=== PATIENT | female | born 1940 | race Caucasian/White ===

== ENCOUNTER 2016-04-10 08:01 | Day surgery (SDC) | payer OTHER ==
[2016-04-09 14:46] VITALS: BMI 39.2
[2016-04-10] MEDS ORDERED: LIDOCAINE HCL/PF 1% SDV 5ML VIAL ONE (08:50)
[2016-04-10] MEDS ORDERED: PROPOFOL 20 ML ONE ×2 (08:50)
[2016-04-10 10:14] VITALS: TEMP 98.2
[2016-04-10 11:19] VITALS: BP 135/64; PULSE 74
--- NOTE | 2016-04-11 13:19 | PATH ---
Surgical Pathology Report Patient Name: GEO VERDIN [facility]. Rec. #: [id number] /Age/Gender: 1940 (Age: 76) / F Account: [id number] Location: U-ENDOSCOPY Taken: 04/10/2016 Received: 04/10/2016 Reported: 04/11/2016 Physicians: Jere Loya M.D. Specimen(s) Received BX PROXIMAL TRANSVERSE COLON POLYP Clinical History History of colon polyps, adenoma surveillance Colon polyp (proximal transverse colon), melanosis coli, hemorrhoids Final Diagnosis COLON, PROXIMAL TRANSVERSE, POLYP, BIOPSY: FRAGMENTS OF HYPERPLASTIC TYPE POLYP WITH FOCAL ADENOMATOUS CHANGE. Electronically Signed Zachary Brannon M.D. Gross Description Received in formalin, labeled "biopsy proximal transverse colon polyps" are 2 perales, irregular portions of soft tissue averaging 0.4 cm in greatest dimension. The specimens are submitted in toto in one cassette. 04/10/201604/10/2016
== END 2016-04-10 11:18 | disposition home or self-care (01) ==
LOC: JASU-ENDO 08:01
PROVIDERS: ATTEND Internal Medicine Gastroenterology
PROC: 0DBL8ZX Excision of Transverse Colon, Via Natural or Artificial Opening Endoscopic, Diagnostic (ICD-10-PCS; principal; 2016-04-10 09:00)
DX: Z86.010 Personal history of colon polyps (principal); K63.5 Polyp of colon; K64.8 Other hemorrhoids; K63.89 Other specified diseases of intestine; I10 Essential (primary) hypertension; E03.9 Hypothyroidism, unspecified; Z85.028 Personal history of other malignant neoplasm of stomach; Z85.3 Personal history of malignant neoplasm of breast; Z90.13 Acquired absence of bilateral breasts and nipples; M81.0 Age-related osteoporosis without current pathological fracture
CPT/HCPCS: 88305-TC